=== PATIENT | female | born 1955 | race Caucasian/White ===

== ENCOUNTER 2023-05-18 10:55 | Outpatient (RCR) | payer BC, SELFPAY ==
[2023-05-18 11:00] VITALS: BP 127/61
[2023-05-18] MEDS: NSS 250 IV (11:22)
[2023-05-18] MEDS: ORENCIA 100 MG IV (11:23)
== END 2023-05-19 10:38 | disposition home or self-care (01) ==
LOC: OID 10:55
PROVIDERS: ATTENDING PHYSICIAN Internal Medicine; PRIMARYCARE PHYSICIAN Internal Medicine; REFERRING PHYSICIAN Internal Medicine Rheumatology
DX: M06.09 Rheumatoid arthritis without rheumatoid factor, multiple sites (principal); M06.9 Rheumatoid arthritis, unspecified; R06.02 Shortness of breath; R76.8 Other specified abnormal immunological findings in serum
CPT/HCPCS: 96365; J0129

== ENCOUNTER 2023-06-22 09:19 | Outpatient (RCR) | payer BC, SELFPAY ==
[2023-06-22 09:20] VITALS: BP 122/66
[2023-06-22] MEDS: ORENCIA 100 MG IV (09:52)
[2023-06-22] MEDS: NSS 250 IV (09:52)
== END 2023-06-23 09:19 | disposition home or self-care (01) ==
LOC: OID 09:19
PROVIDERS: ATTENDING PHYSICIAN Internal Medicine; PRIMARYCARE PHYSICIAN Internal Medicine; REFERRING PHYSICIAN Internal Medicine Rheumatology
DX: M06.09 Rheumatoid arthritis without rheumatoid factor, multiple sites (principal); M06.9 Rheumatoid arthritis, unspecified; R06.09 Other forms of dyspnea
CPT/HCPCS: 96365; J0129

== ENCOUNTER 2023-07-30 13:53 | Outpatient (RCR) | payer BC, SELFPAY ==
[2023-07-30 14:00] VITALS: BP 122/67
[2023-07-30] MEDS: ORENCIA 100 MG IV (14:21)
[2023-07-30] MEDS: NSS 250 IV (14:21)
== END 2023-08-11 23:59 | disposition home or self-care (01) ==
LOC: OID 13:53
PROVIDERS: ATTENDING PHYSICIAN Internal Medicine; PRIMARYCARE PHYSICIAN Internal Medicine; REFERRING PHYSICIAN Internal Medicine Rheumatology
DX: M06.09 Rheumatoid arthritis without rheumatoid factor, multiple sites (principal); M06.9 Rheumatoid arthritis, unspecified; R06.09 Other forms of dyspnea
CPT/HCPCS: 96365; J0129

== ENCOUNTER 2023-08-27 13:26 | Outpatient (RCR) | payer BC, SELFPAY ==
[2023-08-27 13:45] VITALS: BP 144/59
[2023-08-27] MEDS: ORENCIA 100 MG IV (13:59)
== END 2023-08-28 09:28 | disposition home or self-care (01) ==
LOC: OID 13:26
PROVIDERS: ATTENDING PHYSICIAN Internal Medicine; PRIMARYCARE PHYSICIAN Internal Medicine; REFERRING PHYSICIAN Internal Medicine Rheumatology
DX: M06.09 Rheumatoid arthritis without rheumatoid factor, multiple sites (principal); M06.9 Rheumatoid arthritis, unspecified; R06.09 Other forms of dyspnea
CPT/HCPCS: 96365; J0129

== ENCOUNTER 2023-09-24 13:01 | Outpatient (RCR) | payer BC, SELFPAY ==
[2023-09-24 13:20] VITALS: BP 125/72
[2023-09-24] MEDS: NSS 250 IV (13:40)
[2023-09-24] MEDS: ORENCIA 100 MG IV (13:41)
== END 2023-09-25 11:02 | disposition home or self-care (01) ==
LOC: OID 13:01
PROVIDERS: ATTENDING PHYSICIAN Internal Medicine; PRIMARYCARE PHYSICIAN Internal Medicine; REFERRING PHYSICIAN Internal Medicine Rheumatology
DX: M06.09 Rheumatoid arthritis without rheumatoid factor, multiple sites (principal); M06.9 Rheumatoid arthritis, unspecified; R06.09 Other forms of dyspnea
CPT/HCPCS: 96365; J0129

== ENCOUNTER 2023-10-22 13:44 | Outpatient (RCR) | payer MEDICARE, SELFPAY ==
[2023-10-22] MEDS: NSS 250 IV (14:07)
[2023-10-22] MEDS: ORENCIA 100 MG IV (14:07)
[2023-10-22 14:12] VITALS: BP 113/55
[2023-10-22 14:42] VITALS: BP 139/82
== END 2023-10-23 09:36 | disposition home or self-care (01) ==
LOC: OID 13:44
PROVIDERS: ATTENDING PHYSICIAN Internal Medicine; PRIMARYCARE PHYSICIAN Internal Medicine; REFERRING PHYSICIAN Internal Medicine Rheumatology
DX: M06.09 Rheumatoid arthritis without rheumatoid factor, multiple sites (principal); M06.9 Rheumatoid arthritis, unspecified; R06.09 Other forms of dyspnea
CPT/HCPCS: 96365; J0129

== ENCOUNTER 2023-11-24 08:37 | Outpatient (RCR) | payer MEDICARE, SELFPAY ==
[2023-11-24 09:00] VITALS: BP 124/63
[2023-11-24] MEDS: NSS 250 IV (09:19)
[2023-11-24] MEDS: ORENCIA 100 MG IV (09:20)
== END 2023-11-25 09:10 | disposition home or self-care (01) ==
LOC: OID 08:37
PROVIDERS: ATTENDING PHYSICIAN Internal Medicine; PRIMARYCARE PHYSICIAN Internal Medicine; REFERRING PHYSICIAN Internal Medicine Rheumatology
DX: M06.09 Rheumatoid arthritis without rheumatoid factor, multiple sites (principal); M06.9 Rheumatoid arthritis, unspecified; R06.09 Other forms of dyspnea
CPT/HCPCS: 96365; J0129

== ENCOUNTER 2023-12-29 08:34 | Outpatient (RCR) | payer MEDICARE, SELFPAY ==
[2023-12-29 08:45] VITALS: BP 131/78
[2023-12-29] MEDS: NSS 250 IV (09:05)
[2023-12-29] MEDS: ORENCIA 100 MG IV (09:08)
== END 2023-12-30 10:12 | disposition home or self-care (01) ==
LOC: OID 08:34
PROVIDERS: ATTENDING PHYSICIAN Internal Medicine; PRIMARYCARE PHYSICIAN Internal Medicine; REFERRING PHYSICIAN Internal Medicine Rheumatology
DX: M06.09 Rheumatoid arthritis without rheumatoid factor, multiple sites (principal); M06.9 Rheumatoid arthritis, unspecified; R06.09 Other forms of dyspnea
CPT/HCPCS: 96365; J0129

== ENCOUNTER → 2024-01-01 09:28 | Outpatient (REF) | payer MEDICARE, SELFPAY ==
[2024-01-01 10:38] LABS: % Basophils 0.5 % (0-2); % Eosinophils 1.7 % (0-6); % Immature Granulocytes 0.4 % (0-0.5); % Lymphocytes 26.2 % (20.5-51.1); % Monocytes 6.3 % (1.7-9.3); % Neutrophils 64.9 % (42.2-75.2); Absolute Eosinophils 0.1 10^3/uL (0-0.7); Absolute Monocytes 0.5 10^3/uL (0.1-0.6); Absolute Neutrophils 4.8 10^3/uL (1.4-6.5); Hematocrit 37.9 % (37.0-47.0); Hemoglobin 12.4 g/dL (12.0-16.0); Mean Corp Hgb Conc. 32.7 g/dL (33.0-37.0); Mean Corpuscular Volume 100.8 fL (81.0-99.0); Mean Platelet Volume 10.6 fL (7.4-10.4); Nucleated Red Blood Cells % 0 %; Platelet Count 371 10^3/uL (130-400); Red Blood Cell Count 3.76 10^6/uL (4.20-5.40); Red Cell Dist. Width 11.9 % (11.5-14.5); White Blood Cell Count 7.5 10^3/uL (4.8-10.8)
[2024-01-01 11:27] LABS: Erythrocyte Sed Rate 20 mm/hour (0-20)
[2024-01-01 11:58] LABS: ALT (SGPT) 26 U/L (0-35); AST (SGOT) 27 U/L (14-36); Albumin 4.4 g/dl (3.5-5.0); Alkaline Phosphatase 81 U/L (38-126); Blood Urea Nitrogen 23 mg/dl (7-17); Carbon Dioxide 27 mmol/L (22-30); Chloride 100 mmol/L (98-107); Glucose 123 mg/dl (70-99); HDL Cholesterol 103 mg/dl; LDL Cholesterol, Calculated 93 mg/dl; Potassium 4.5 mmol/L (3.5-5.1); Sodium 141 mmol/L (135-145); Total Bilirubin 1.2 mg/dl (0.2-1.3); Total Cholesterol 206 mg/dl (50-199); Total Protein 6.8 g/dl (6.3-8.2); Triglyceride 54 mg/dl (10-149); Very Low Density Lipoprotein 10 mg/dl (0-30); eGFR 55.42
== END ==
LOC: REG 09:28
PROVIDERS: ATTENDING PHYSICIAN Internal Medicine; REFERRING PHYSICIAN Internal Medicine
DX: M06.09 Rheumatoid arthritis without rheumatoid factor, multiple sites (principal); Z51.81 Encounter for therapeutic drug level monitoring; Z79.899 Other long term (current) drug therapy; E78.5 Hyperlipidemia, unspecified
CPT/HCPCS: 36415; 80053; 80061; 85025; 85652; 86140

== ENCOUNTER 2024-01-27 08:33 | Outpatient (RCR) | payer MEDICARE, SELFPAY ==
[2024-01-27] MEDS: ORENCIA 100 MG IV (09:15)
[2024-01-27 09:20] VITALS: BP 141/75
== END 2024-01-27 11:00 | disposition home or self-care (01) ==
LOC: OID 08:33
PROVIDERS: ATTENDING PHYSICIAN Internal Medicine; PRIMARYCARE PHYSICIAN Internal Medicine; REFERRING PHYSICIAN Internal Medicine Rheumatology
DX: M06.09 Rheumatoid arthritis without rheumatoid factor, multiple sites (principal); M06.9 Rheumatoid arthritis, unspecified; R06.09 Other forms of dyspnea
CPT/HCPCS: 96365; J0129

== ENCOUNTER 2024-02-23 10:10 | Outpatient (RCR) | payer MEDICARE, SELFPAY ==
[2024-02-23] MEDS: NSS 250 IV (10:32)
[2024-02-23] MEDS: ORENCIA 100 MG IV (10:33)
[2024-02-23 10:36] VITALS: BP 101/73
== END 2024-03-12 23:59 | disposition home or self-care (01) ==
LOC: OID 10:10
PROVIDERS: ATTENDING PHYSICIAN Internal Medicine; PRIMARYCARE PHYSICIAN Internal Medicine; REFERRING PHYSICIAN Internal Medicine Rheumatology
DX: M06.09 Rheumatoid arthritis without rheumatoid factor, multiple sites (principal); M06.9 Rheumatoid arthritis, unspecified; R06.09 Other forms of dyspnea
CPT/HCPCS: 96361; 96365; J0129

== ENCOUNTER 2024-03-22 10:05 | Outpatient (RCR) | payer MEDICARE, SELFPAY ==
[2024-03-22] MEDS: NSS 250 IV (10:38)
[2024-03-22] MEDS: ORENCIA 100 MG IV (10:39)
[2024-03-22 11:09] VITALS: BP 121/60
== END 2024-03-23 09:30 | disposition home or self-care (01) ==
LOC: OID 10:05
PROVIDERS: ATTENDING PHYSICIAN Internal Medicine; PRIMARYCARE PHYSICIAN Internal Medicine; REFERRING PHYSICIAN Internal Medicine Rheumatology
DX: M06.09 Rheumatoid arthritis without rheumatoid factor, multiple sites (principal); M06.9 Rheumatoid arthritis, unspecified; R06.09 Other forms of dyspnea
CPT/HCPCS: 96361; 96365; J0129

== ENCOUNTER → 2024-04-19 18:21 | Outpatient (REF) | payer MEDICARE, SELFPAY | LOC: WDC 18:21 | PROVIDERS: ATTENDING PHYSICIAN Obstetrics & Gynecology; FAMILY PHYSICIAN Internal Medicine | DX: Z12.31 Encounter for screening mammogram for malignant neoplasm of breast (principal) | CPT/HCPCS: 77063; 77067 ==

== ENCOUNTER 2024-05-02 12:59 | Outpatient (RCR) | payer MEDICARE, SELFPAY ==
[2024-05-02 13:10] VITALS: BP 129/75
[2024-05-02] MEDS: NSS 250 IV (13:35)
[2024-05-02] MEDS: ORENCIA 100 MG IV (13:36)
== END 2024-05-03 08:53 | disposition home or self-care (01) ==
LOC: OID 12:59
PROVIDERS: ATTENDING PHYSICIAN Internal Medicine; PRIMARYCARE PHYSICIAN Internal Medicine; REFERRING PHYSICIAN Internal Medicine Rheumatology
DX: M06.09 Rheumatoid arthritis without rheumatoid factor, multiple sites (principal); M06.9 Rheumatoid arthritis, unspecified; R76.8 Other specified abnormal immunological findings in serum; R06.09 Other forms of dyspnea
CPT/HCPCS: 96365; J0129

== ENCOUNTER 2024-06-02 13:05 | Outpatient (RCR) | payer MEDICARE, SELFPAY ==
[2024-06-02] MEDS: NSS 250 IV (13:38)
[2024-06-02] MEDS: ORENCIA 100 MG IV (13:39)
[2024-06-02 13:44] VITALS: BP 144/69
== END 2024-06-03 09:25 | disposition home or self-care (01) ==
LOC: OID 13:05
PROVIDERS: ATTENDING PHYSICIAN Internal Medicine; PRIMARYCARE PHYSICIAN Internal Medicine; REFERRING PHYSICIAN Internal Medicine Rheumatology
DX: M06.09 Rheumatoid arthritis without rheumatoid factor, multiple sites (principal); R76.8 Other specified abnormal immunological findings in serum; R06.09 Other forms of dyspnea
CPT/HCPCS: 96365; J0129

== ENCOUNTER 2024-06-30 12:58 | Outpatient (RCR) | payer MEDICARE, SELFPAY ==
[2024-06-30 13:18] VITALS: BP 132/64
[2024-06-30] MEDS: NSS 250 IV (13:20)
[2024-06-30] MEDS: ORENCIA 100 MG IV (13:24)
== END 2024-07-01 09:24 | disposition home or self-care (01) ==
LOC: OID 12:58
PROVIDERS: ATTENDING PHYSICIAN Internal Medicine; PRIMARYCARE PHYSICIAN Internal Medicine; REFERRING PHYSICIAN Internal Medicine Rheumatology
DX: M06.09 Rheumatoid arthritis without rheumatoid factor, multiple sites (principal); M06.9 Rheumatoid arthritis, unspecified; R06.09 Other forms of dyspnea
CPT/HCPCS: 96365; J0129

== ENCOUNTER 2024-07-28 13:03 | Outpatient (RCR) | payer MEDICARE, SELFPAY ==
[2024-07-28 13:11] VITALS: BP 136/71
[2024-07-28] MEDS: ORENCIA 100 MG IV (13:32)
[2024-07-28] MEDS: NSS 250 IV (13:33)
== END 2024-07-29 11:33 | disposition home or self-care (01) ==
LOC: OID 13:03
PROVIDERS: ATTENDING PHYSICIAN Internal Medicine; PRIMARYCARE PHYSICIAN Internal Medicine; REFERRING PHYSICIAN Internal Medicine Rheumatology
DX: M06.09 Rheumatoid arthritis without rheumatoid factor, multiple sites (principal); M06.9 Rheumatoid arthritis, unspecified; R06.09 Other forms of dyspnea
CPT/HCPCS: 96365; J0129

== ENCOUNTER → 2024-08-05 09:53 | Outpatient (REF) | payer MEDICARE, SELFPAY | LOC: HWRAD 09:53 | PROVIDERS: ATTENDING PHYSICIAN Internal Medicine Gastroenterology; FAMILY PHYSICIAN Internal Medicine | DX: K58.1 Irritable bowel syndrome with constipation (principal) | CPT/HCPCS: 76700 ==

== ENCOUNTER 2024-08-25 12:53 | Outpatient (RCR) | payer MEDICARE, SELFPAY ==
[2024-08-25 13:08] VITALS: BP 121/60
[2024-08-25] MEDS: NSS 250 IV (13:17)
[2024-08-25] MEDS: ORENCIA 100 MG IV (13:26)
== END 2024-08-26 09:00 | disposition home or self-care (01) ==
LOC: OID 12:53
PROVIDERS: ATTENDING PHYSICIAN Internal Medicine; PRIMARYCARE PHYSICIAN Internal Medicine; REFERRING PHYSICIAN Internal Medicine Rheumatology
DX: M06.09 Rheumatoid arthritis without rheumatoid factor, multiple sites (principal); R76.8 Other specified abnormal immunological findings in serum
CPT/HCPCS: 96365; J0129

== ENCOUNTER 2024-09-22 13:27 | Outpatient (RCR) | payer MEDICARE, SELFPAY ==
[2024-09-22 13:30] VITALS: BP 124/61
[2024-09-22] MEDS: ORENCIA 100 MG IV (14:05)
[2024-09-22] MEDS: NSS 250 IV (14:06)
== END 2024-09-23 14:04 | disposition home or self-care (01) ==
LOC: OID 13:27
PROVIDERS: ATTENDING PHYSICIAN Internal Medicine; PRIMARYCARE PHYSICIAN Internal Medicine; REFERRING PHYSICIAN Internal Medicine Rheumatology
DX: M06.09 Rheumatoid arthritis without rheumatoid factor, multiple sites (principal); M06.9 Rheumatoid arthritis, unspecified; R06.09 Other forms of dyspnea
CPT/HCPCS: 96365; J0129

== ENCOUNTER → 2024-10-13 13:28 | Outpatient (REF) | payer MEDICARE, SELFPAY | LOC: RAD 13:28 | PROVIDERS: ATTENDING PHYSICIAN Internal Medicine; FAMILY PHYSICIAN Internal Medicine | DX: M81.0 Age-related osteoporosis without current pathological fracture (principal) | CPT/HCPCS: 77080; 77081 ==

== ENCOUNTER 2024-10-19 10:48 | Outpatient (RCR) | payer MEDICARE, SELFPAY ==
[2024-10-19] MEDS: NSS 250 IV (11:21)
[2024-10-19] MEDS: ORENCIA 100 MG IV (11:22)
[2024-10-19 11:27] VITALS: BP 124/66
== END 2024-10-20 09:06 | disposition home or self-care (01) ==
LOC: OID 10:48
PROVIDERS: ATTENDING PHYSICIAN Internal Medicine; PRIMARYCARE PHYSICIAN Internal Medicine; REFERRING PHYSICIAN Internal Medicine Rheumatology
DX: M06.09 Rheumatoid arthritis without rheumatoid factor, multiple sites (principal); M06.9 Rheumatoid arthritis, unspecified; R06.09 Other forms of dyspnea
CPT/HCPCS: 96365; J0129

== ENCOUNTER → 2024-10-25 13:54 | Outpatient (REF) | payer MEDICARE, SELFPAY ==
[2024-10-25 15:33] LABS: Hematocrit 38.3 % (37.0-47.0); Hemoglobin 12.7 g/dL (12.0-16.0); Mean Corp Hgb Conc. 33.2 g/dL (33.0-37.0); Mean Corpuscular Volume 99.0 fL (81.0-99.0); Nucleated Red Blood Cells % 0 %; Platelet Count 384 10^3/uL (130-400); Red Cell Dist. Width 11.9 % (11.5-14.5)
[2024-10-25 16:11] LABS: ALT (SGPT) 48 U/L (0-35); AST (SGOT) 39 U/L (14-36); Albumin 4.6 g/dl (3.5-5.0); Alkaline Phosphatase 71 U/L (38-126); Blood Urea Nitrogen 18 mg/dl (7-17); Calcium 9.9 mg/dl (8.4-10.2); Carbon Dioxide 28 mmol/L (22-30); Chloride 103 mmol/L (98-107); Glucose 93 mg/dl (70-99); Potassium 4.5 mmol/L (3.5-5.1); Sodium 137 mmol/L (135-145); Total Protein 6.9 g/dl (6.3-8.2); eGFR > 60.00
[2024-10-25 16:13] LABS: C-Reactive Protein < 5.00 mg/L (0.0-10.00)
== END ==
LOC: REG 13:54
PROVIDERS: ATTENDING PHYSICIAN Internal Medicine
DX: M06.9 Rheumatoid arthritis, unspecified (principal); M25.519 Pain in unspecified shoulder; D84.9 Immunodeficiency, unspecified
CPT/HCPCS: 36415; 73000; 80053; 85025; 85652; 86140

== ENCOUNTER → 2024-11-04 14:12 | Outpatient (REF) | payer MEDICARE, SELFPAY ==
[2024-11-04 16:02] LABS: ALT (SGPT) 33 U/L (0-35); AST (SGOT) 23 U/L (14-36); Albumin 4.3 g/dl (3.5-5.0); Alkaline Phosphatase 65 U/L (38-126); Total Protein 6.6 g/dl (6.3-8.2)
[2024-11-04 17:10] LABS: TSH 0.34 uIU/ml (0.47-4.68)
== END ==
LOC: RAD 14:12
PROVIDERS: ATTENDING PHYSICIAN Internal Medicine
DX: E04.1 Nontoxic single thyroid nodule (principal)
CPT/HCPCS: 36415; 76536; 80076; 84439; 84443

== ENCOUNTER 2024-11-16 10:48 | Outpatient (RCR) | payer MEDICARE, SELFPAY ==
[2024-11-16] MEDS: ORENCIA 100 MG IV (11:26)
[2024-11-16] MEDS: NSS 250 IV (11:27)
[2024-11-16 11:35] VITALS: BP 116/63
[2024-11-16 12:20] VITALS: BP 126/62
== END 2024-12-08 14:27 | disposition home or self-care (01) ==
LOC: OID 10:48
PROVIDERS: ATTENDING PHYSICIAN Internal Medicine; PRIMARYCARE PHYSICIAN Internal Medicine; REFERRING PHYSICIAN Internal Medicine Rheumatology
DX: M06.09 Rheumatoid arthritis without rheumatoid factor, multiple sites (principal); M06.9 Rheumatoid arthritis, unspecified; R06.09 Other forms of dyspnea
CPT/HCPCS: 96365; J0129

== ENCOUNTER 2024-12-14 10:53 | Outpatient (RCR) | payer MEDICARE, SELFPAY ==
[2024-12-14] MEDS: NSS 250 IV (11:18)
[2024-12-14] MEDS: ORENCIA 100 MG IV (11:18)
[2024-12-14 11:21] VITALS: BP 129/54
== END 2024-12-15 09:41 | disposition home or self-care (01) ==
LOC: OID 10:53
PROVIDERS: ATTENDING PHYSICIAN Internal Medicine; PRIMARYCARE PHYSICIAN Internal Medicine; REFERRING PHYSICIAN Internal Medicine Rheumatology
DX: M06.09 Rheumatoid arthritis without rheumatoid factor, multiple sites (principal); M06.9 Rheumatoid arthritis, unspecified; R06.09 Other forms of dyspnea
CPT/HCPCS: 96361; 96365; J0129

== ENCOUNTER → 2025-01-06 14:01 | Outpatient (REF) | payer MEDICARE, SELFPAY | LOC: MRI 14:01 | PROVIDERS: ATTENDING PHYSICIAN Internal Medicine Endocrinology, Diabetes & Metabolism; FAMILY PHYSICIAN Internal Medicine | DX: E04.2 Nontoxic multinodular goiter (principal); M54.2 Cervicalgia | CPT/HCPCS: 70543; A9575 ==

== ENCOUNTER → 2025-01-11 13:08 | Outpatient (REF) | payer MEDICARE, SELFPAY ==
[2025-01-11 16:32] LABS: TSH 0.64 uIU/ml (0.47-4.68)
[2025-01-13 20:36] LABS: Thyroglobulin Antibodies <1.5 IU/mL (0.0-4.0)
[2025-01-14 00:42] LABS: Total T3 (Sendout) 116 ng/dL (80-200)
[2025-01-14 05:02] LABS: Thyroid Stim. Immunoglobulin <0.10 IU/L (<=0.54)
== END ==
LOC: REG 13:08
PROVIDERS: ATTENDING PHYSICIAN Internal Medicine
DX: E05.90 Thyrotoxicosis, unspecified without thyrotoxic crisis or storm (principal)
CPT/HCPCS: 36415; 84439; 84443; 84445; 84480; 86376; 86800

== ENCOUNTER → 2025-01-19 08:26 | Outpatient (REF) | payer MEDICARE, SELFPAY ==
[2025-01-19 09:21] LABS: Hematocrit 40.3 % (37.0-47.0); Hemoglobin 13.0 g/dL (12.0-16.0); Mean Corp Hgb Conc. 32.3 g/dL (33.0-37.0); Mean Corpuscular Volume 101.5 fL (81.0-99.0); Nucleated Red Blood Cells % 0 %; Platelet Count 395 10^3/uL (130-400); Red Cell Dist. Width 12.6 % (11.5-14.5)
[2025-01-19 09:49] LABS: ALT (SGPT) 42 U/L (0-35); AST (SGOT) 27 U/L (14-36); Albumin 4.7 g/dl (3.5-5.0); Alkaline Phosphatase 70 U/L (38-126); Blood Urea Nitrogen 22 mg/dl (7-17); Calcium 10.0 mg/dl (8.4-10.2); Carbon Dioxide 32 mmol/L (22-30); Chloride 103 mmol/L (98-107); Glucose 98 mg/dl (70-99); Potassium 4.6 mmol/L (3.5-5.1); Sodium 141 mmol/L (135-145); Total Protein 7.1 g/dl (6.3-8.2); Very Low Density Lipoprotein 9 mg/dl (0-30); eGFR > 60.00
[2025-01-19 09:54] LABS: C-Reactive Protein 9.80 mg/L (0.0-10.00)
[2025-01-19 10:05] LABS: HDL Cholesterol 119 mg/dl; LDL Cholesterol, Calculated 103 mg/dl
[2025-01-19 13:53] LABS: Rheumatoid Agglutinin Less Than 10 IU (<10 IU)
[2025-01-21 13:35] LABS: ANA, IgG Reflex to HEp-2 Detected (None Detected)
[2025-01-21 15:11] LABS: CCP Antibody IgG/IgA 5 Units (0-19)
[2025-01-22 07:09] LABS: Serine Protease-3, IgG 0 AU/mL (0-19)
== END ==
LOC: REG 08:26
PROVIDERS: ATTENDING PHYSICIAN Internal Medicine; FAMILY PHYSICIAN Internal Medicine
DX: I77.82 Antineutrophilic cytoplasmic antibody [ANCA] vasculitis (principal); M06.09 Rheumatoid arthritis without rheumatoid factor, multiple sites; M25.40 Effusion, unspecified joint; M25.50 Pain in unspecified joint; Z22.7 Latent tuberculosis; E78.5 Hyperlipidemia, unspecified; Z51.81 Encounter for therapeutic drug level monitoring
CPT/HCPCS: 36415; 80053; 80061; 83516; 85025; 85652; 86038; 86140; 86200; 86430; 86480

== ENCOUNTER 2025-02-08 13:42 | Outpatient (RCR) | payer MEDICARE, SELFPAY ==
[2025-01-11 13:51] VITALS: BP 139/59
[2025-01-11] MEDS: NSS 250 IV (14:06)
[2025-01-11] MEDS: ORENCIA 100 MG IV (14:07)
[2025-02-08 13:52] VITALS: BP 128/69
[2025-02-08] MEDS: ORENCIA 100 MG IV (14:05)
[2025-02-08] MEDS: NSS 250 IV (14:05)
== END 2025-02-10 23:59 | disposition home or self-care (01) ==
LOC: OID 13:42
PROVIDERS: ATTENDING PHYSICIAN Internal Medicine; PRIMARYCARE PHYSICIAN Internal Medicine; REFERRING PHYSICIAN Internal Medicine Rheumatology
DX: M06.09 Rheumatoid arthritis without rheumatoid factor, multiple sites (principal); M06.9 Rheumatoid arthritis, unspecified; R06.09 Other forms of dyspnea
CPT/HCPCS: 96365; J0129

== ENCOUNTER 2025-03-08 13:40 | Outpatient (RCR) | payer MEDICARE, SELFPAY ==
[2025-03-08 13:45] VITALS: BP 133/72
[2025-03-08] MEDS: NSS 250 IV (14:13)
[2025-03-08] MEDS: ORENCIA 100 MG IV (14:14)
== END 2025-03-10 09:25 | disposition home or self-care (01) ==
LOC: OID 13:40
PROVIDERS: ATTENDING PHYSICIAN Internal Medicine; PRIMARYCARE PHYSICIAN Internal Medicine; REFERRING PHYSICIAN Internal Medicine Rheumatology
DX: M06.09 Rheumatoid arthritis without rheumatoid factor, multiple sites (principal); M06.9 Rheumatoid arthritis, unspecified; R06.09 Other forms of dyspnea
CPT/HCPCS: 96365; J0129

== ENCOUNTER 2025-04-04 13:42 | Outpatient (RCR) | payer MEDICARE, SELFPAY ==
[2025-04-04 13:50] VITALS: BP 124/62
[2025-04-04] MEDS: ORENCIA 100 MG IV (14:08)
[2025-04-04] MEDS: NSS 250 IV (14:08)
== END 2025-04-05 09:14 | disposition home or self-care (01) ==
LOC: OID 13:42
PROVIDERS: ATTENDING PHYSICIAN Internal Medicine; PRIMARYCARE PHYSICIAN Internal Medicine; REFERRING PHYSICIAN Internal Medicine Rheumatology
DX: M06.09 Rheumatoid arthritis without rheumatoid factor, multiple sites (principal); M06.9 Rheumatoid arthritis, unspecified; R06.09 Other forms of dyspnea
CPT/HCPCS: 96365; J0129